=== PATIENT | male | born 2000 | race Caucasian/White ===

== ENCOUNTER 2020-06-20 14:15 | Day surgery (SDC) | payer OTHER ==
[~2020-06-20 14:15] MED LIST: Iopamidol-370 76% 500 ML 1 ML ONE
[2020-06-20] MEDS ORDERED: Ondansetron PF 4 MG/2 ML Vial ONE ×2 (14:36→17:31)
[2020-06-20] MEDS ORDERED: Morphine 4 MG/ML VIAL ONE (14:50)
[2020-06-20 14:53] LABS: #Basophils 0.1 thou/uL (0.0-0.2); #Eosinphils 0.1 thou/uL (0.0-0.7); #Lymphocytes 2.9 thou/uL (1.20-3.40); #Monocytes 1.2 thou/uL (0.11-0.59); #Neutrophils 9.4 thou/uL (1.40-6.50); %Basophils 0.5 % (0.0-1.0); %Eosinophils 0.9 % (0.0-10.0); %Lymphocytes 20.9 % (28.0-48.0); %Monocytes 8.7 % (0.0-4.0); Hemoglobin 15.2 g/dL (14.0-18.0); Mean Corpuscular HGB CONC 33.7 g/dL (32.0-36.0); Mean Corpuscular Hemoglobin 30.9 pg (25.0-35.0); Mean Corpuscular Volume 91.5 fL (78.0-98.0); Mean Platelet Volume 8.1 fL (7.4-10.4); Platelet Count 311 thou/uL (130-400); RBC Distribution Width 11.8 % (11.5-14.5); Red Blood Cell (RBC) Count 4.93 mill/uL (4.00-5.20); White Blood Cell (WBC) Count 13.6 thou/uL (4.8-10.8)
[2020-06-20 15:18] LABS: ALT (SGPT) 50 U/L (8-55); AST (SGOT) 169 U/L (5-34); Albumin 4.5 g/dL (3.5-5.0); Alkaline Phosphatase 82 U/L (50-130); Anion Gap 14 mmol/L (10-20); BUN (Urea Nitrogen) 31 mg/dL (8.9-20.6); Calc. Creatinine Clearance 0 mL/min (70-130); Calcium 9.8 mg/dL (7.8-10.44); Carbon Dioxide 31 mmol/L (22-29); Chloride 98 mmol/L (98-107); Glucose 117 mg/dL (70-105); Lipase 16 U/L (8-78); Potassium 3.4 mmol/L (3.5-5.1); Protein, Total 7.5 g/dL (6.0-8.3); Sodium 140 mmol/L (136-145)
[2020-06-20 16:10] LABS: Bilirubin Negative (Negative); Blood, Urine Negative (Negative); Clarity Clear (Clear); Glucose, Urine (Dipstick) Normal (Negative); Ketone, Urine Trace mg/dL (Negative); Leukocyte Negative Leu/uL (Negative); Nitrite Negative (Negative); Protein, Urine (Dipstick) 10 mg/dL (Neg-Trace); Urobilinogen Normal mg/dL (Less than 2); pH, Urine 5.5 (5.0-9.0)
[2020-06-20 16:11] LABS: Specific Gravity, Urine Greater than 1.060 (1.002-1.036)
[2020-06-20] MEDS ORDERED: Piperacillin/Tazobactam 4.5 GM VIAL ONE (16:38)
[2020-06-20] MEDS ORDERED: Bupivacaine 0.25% HCL 30 ML VIAL ONE (17:11)
[2020-06-20] MEDS ORDERED: Lidocaine 1% w/Epinephrine 1:100K 20 ML VIAL ONE (17:11)
[2020-06-20] MEDS ORDERED: Sodium Chloride 0.9% 20 ML ONE (17:17)
[2020-06-20] MEDS ORDERED: Rocuronium Bromide 10 MG/ML (10ML VIAL) ONE (17:31)
[2020-06-20] MEDS ORDERED: Succinylcholine 200 MG/10 ml SYRINGE FS ONE (17:31)
[2020-06-20] MEDS ORDERED: Lidocaine 1% PF 5 ML VIAL ONE (17:31)
[2020-06-20] MEDS ORDERED: Dexamethasone 20 MG/5 ML VIAL ONE (17:31)
[2020-06-20] MEDS ORDERED: Ketorolac Tromethamine 30 MG/ML VIAL ONE (17:31)
[2020-06-20] MEDS ORDERED: PROPOFOL 200 MG/20 ML VIAL ONE (17:31)
== END 2020-06-20 19:35 | disposition home or self-care (01) ==
LOC: ERS 14:15 → SDC/OP 16:53
PROVIDERS: ATTEND Surgery
PROC: 0DTJ4ZZ Resection of Appendix, Percutaneous Endoscopic Approach (ICD-10-PCS; principal; 2020-06-20)
DX: K35.32 Acute appendicitis with perforation, localized peritonitis, and gangrene, without abscess (principal)
CPT/HCPCS: 74177; 80053; 81003; 83690; 85025; 88304; 96374; 96375; J1100; J1885; J2270; J2405; J2543; J2704; Q9967; S0020